=== PATIENT | female | born 1940 | race Caucasian/White ===

== ENCOUNTER 2020-04-28 13:03 | Emergency (ER) | payer MEDICARE, BC ==
[2020-04-28] MEDS ORDERED: Lidocaine 2% 20 ML MDV INFILT ONE (13:04)
--- NOTE | 2020-04-28 13:41 | EDM.PDOC ---
ED HPI GENERAL MEDICAL PROBLEM - General Chief Complaint: Laceration Stated Complaint: LT FOREHEAD LACERATION Time Seen by Provider: 04/28/20 13:38 Source of Information: Reports: Patient History Limitations: Reports: No Limitations - History of Present Illness INITIAL COMMENTS - FREE TEXT/NARRATIVE: 79-year-old female who reports she was walking into her kitchen and there is a strip between the kitchen and room adjoining it and she caught her foot on the strep and fell forward and struck her head on a chair and then landed on the floor. This occurred approximately 11:30 AM today. There was no loss of consciousness. She does have some discomfort around the injured area on her left forehead and some neck stiffness but she denies any real pain. She denies any vision problems. She does complain of pain along her right lateral back, flank and her entire right sided abdomen. She has had no nausea or vomiting but she does report a lot of belching since this occurred. She is rating the pain on her right side as about a 7/10. It is a sore pain and it is worse with movement and with palpation. She also landed on both her knees and sustained abrasions to these areas. But she reports the pain in these areas is minimal and she has been ambulatory without any problem. There are no other associated signs or symptoms. There are no other modifying factors. 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.) right side of her body and head Pain Score (Numeric/FACES): 5 - Related Data Allergies Allergy/AdvReac Type Severity Reaction Status Date / Time amoxicillin Allergy Cannot Verified 04/28/20 13:48 Remember Penicillins Allergy Cannot Verified 04/28/20 13:41 Remember terazosin Allergy Cannot Verified 04/28/20 13:48 Remember Past Medical History Cardiovascular History: Reports: CAD, Hypertension Endocrine/Metabolic History: Reports: Diabetes, Type II - Past Surgical History Cardiovascular Surgical History: Reports: Coronary Artery Bypass Social & Family History - Tobacco Use Tobacco Use Status *Q: Unknown Ever Used Tobacco (Nonsmoker) - Alcohol Use Alcohol Use History: No - Living Situation & Occupation Occupation: Retired ED ROS GENERAL - Review of Systems Review Of Systems: See Below Constitutional: Reports: No Symptoms HEENT: Reports: No Symptoms Respiratory: Reports: No Symptoms Cardiovascular: Reports: No Symptoms Endocrine: Reports: No Symptoms GI/Abdominal: Reports: Abdominal Pain, Other (Pulsing) : Reports: No Symptoms Musculoskeletal: Reports: Other (Some neck stiffness. Bilateral knee soreness but mild.) Skin: Reports: Wound (Laceration to left forehead. Bilateral knee abrasions.) Neurological: Reports: No Symptoms Hematologic/Lymphatic: Reports: No Symptoms Immunologic: Reports: Other (Greater than 5 years since her last tetanus immunization.) ED EXAM, SKIN/RASH Exam: See Below Exam Limited By: No Limitations General Appearance: Alert, WD/WN, Mild Distress Eye Exam: Bilateral Eye: EOMI, Normal Inspection, PERRL Ears: Normal External Exam, Hearing Grossly Normal Nose: Normal Inspection, Normal Mucosa, No Blood Throat/Mouth: Normal Inspection, Normal Oropharynx, Normal Voice, No Airway Compromise Head: Facial Swelling, Facial Tenderness (4 cm laceration over the origin) Neck: Normal Inspection, Tender Midline (Mild posterior midline tenderness.) Respiratory/Chest: No Respiratory Distress, Lungs Clear, Normal Breath Sounds, No Accessory Muscle Use, Chest Non-Tender Cardiovascular: Normal Peripheral Pulses, Regular Rate, Rhythm, No Murmur Peripheral Pulses: 2+: Radial (L), Radial (R), Dorsalis Pedis (L), Dorsalis Pedis (R) GI/Abdominal: Normal Bowel Sounds, Soft, No Mass, Pelvis Stable, Tender (All along the right side.) Back Exam: Normal Inspection Extremities: Normal Inspection, Normal Range of Motion, No Pedal Edema, Normal Capillary Refill, Other (Mildly tender over both anterior knees but she has full and active range of motion. There is no crepitus or bony deformity.) Neurological: Alert, Oriented, CN II-XII Intact, Normal Cognition, No Motor/Sensory Deficits Psychiatric: Normal Affect Skin: Warm, Dry, Normal Color, Wound/Incision (Abrasions on both knees. Laceration on the left forehead that is 6 cm in length. There is one 5 cm portion and then one 1 cm portion.) Location, Skin: Face (Left forehead as her evaluation), Lower Extremity, Right (Right knee abrasion), Lower Extremity, Left (Left knee abrasion) Characteristics: Other (As above) ED SKIN PROCEDURES - Laceration/Wound Repair Left Forehead Appearance: Subcutaneous Distal NVT: Neuro & Vascular Intact Anesthetic Type: Local Local Anesthesia - Lidocaine (Xylocaine): 2% Plain Local Anesthetic Volume: Other (7 mL) Skin Prep: Saline Saline Irrigation (cc's): 500 Exploration/Debridement/Repair: Wound Explored, No Foreign Material Found, Other (No crepitus. No bony deformity.) Closed with: Sutures Lac/Wound length In cm: 6 Suture Size: 5-0 # of Sutures: 10 Suture Type: Prolene, Running, Simple Sterile Dressing Applied: Nurse Tetanus Status Addressed: Yes (Patient given Tdap immunization.) Complications: No Course - Vital Signs Last Recorded V/S: Last Vital Signs Temp 36.6 C 04/28/20 13:05 Pulse 86 04/28/20 17:00 Resp 16 04/28/20 17:00 BP 113/84 04/28/20 17:00 Pulse Ox 100 04/28/20 17:00 - Orders/Labs/Meds Orders: Active Orders 24 hr Category Date Time Status Abdomen Pelvis w Cont [CT] Stat Exams 04/28/20 14:41 Taken Cervical Spine wo Cont [CT] Stat Exams 04/28/20 14:41 Taken Head wo Cont [CT] Stat Exams 04/28/20 14:41 Taken Peripheral IV Insertion Adult [OM.PC] Routine Oth 04/28/20 14:04 Ordered Labs: Laboratory Tests 04/28/20 04/28/20 04/28/20 Range/Units 14:10 14:10 14:10 WBC 9.4 (3.0-10.3) x10-3/uL RBC 3.80 (3.60-5.20) x10(6)uL Hgb 10.9 L (11.4-15.5) g/dL Hct 33.3 L (34.2-48.2) % MCV 87.6 (76.7-100.5) fL MCH 28.6 (23.9-33.9) pg MCHC 32.6 (31.9-34.8) g/dL RDW 13.7 (12.3-16.5) % Plt Count 313 (151-488) x10(3)uL MPV 7.7 (7.1-12.4) fL Neut % (Auto) 78.7 H (30.8-76.2) % Lymph % (Auto) 12.2 L (18.4-52.1) % Nuckolls % (Auto) 6.3 (4.4-15.7) % Eos % (Auto) 2.3 (0.6-8.1) % Baso % (Auto) 0.5 (0.2-1.5) % Neut # (Auto) 7.4 H (1.5-6.3) x10-3/uL Lymph # (Auto) 1.1 (1.0-4.4) x10-3/uL Nuckolls # (Auto) 0.6 (0.3-1.0) x10-3/uL Eos # (Auto) 0.2 (0.0-0.8) x10-3/uL Baso # (Auto) 0.0 (0.0-0.1) x10-3/uL Sodium 137 (135-145) mmol/L Potassium 4.5 (3.5-5.3) mmol/L Chloride 100 (100-110) mmol/L Carbon Dioxide 27 (21-32) mmol/L BUN 29 H (7-18) mg/dL Creatinine 1.2 H (0.55-1.02) mg/dL Est Cr Clr Drug Dosing TNP Estimated GFR (MDRD) 43 L (>60) BUN/Creatinine Ratio 24.2 H (9-20) Glucose 157 H (80-116) mg/dL Calcium 9.4 (8.6-10.2) mg/dL Total Bilirubin 0.5 (0.1-1.3) mg/dL AST 23 (5-25) IU/L ALT 27 (12-36) U/L Alkaline Phosphatase 105 (56-112) IU/L Total Protein 7.8 (6.0-8.0) g/dL Albumin 3.4 (3.2-4.6) g/dL Globulin 4.4 g/dL Albumin/Globulin Ratio 0.8 Lipase 63 L (73-393) U/L Meds: Medications Discontinued Medications Generic Name Dose Route Start Last Admin Trade Name Mattq PRN Reason Stop Dose Admin Diphtheria/Tetanus/Acell Pertussis 0.5 ml 04/28/20 14:04 04/28/20 14:09 Boostrix IM 04/28/20 14:05 0.5 ml .ONCE ONE Administration Sodium Chloride 500 mls @ 999 mls/hr 04/28/20 14:40 04/28/20 14:50 Normal Saline IV 04/28/20 15:10 999 mls/hr .BOLUS ONE Administration Iopamidol 100 ml 04/28/20 14:50 04/28/20 15:15 Isovue-370 (76%) IV 04/28/20 14:51 85 ml . DIRECTED ONE Administration Sodium Chloride 10 ml 04/28/20 14:04 04/28/20 14:00 Saline Flush FLUSH 10 ml ASDIRECTED PRN Administration Keep Vein Open - Radiology Interpretation Free Text/Narrative:: CT scan of head shows no evidence of acute traumatic abnormalities but there is decreased attenuation of the mena matter and white matter in the anterolateral right frontal lobe area. The radiologist was questioning a subacute stroke but I was able to get reports from studies and 2018 from [facility] and this is where she had her previous stroke. 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 CT scan of abdomen and pelvis shows no acute traumatic normality per the radiologist. - Re-Assessments/Exams Free Text/Narrative Re-Assessment/Exam: 04/28/20 14:30: The patient does have abdominal pain on the right side and this was traumatic injury. She also has some headache and some mild neck pain. I will do a CT scan of her head, cervical spine and abdomen and pelvis. I will need to give IV contrast for the abdomen and pelvis and her blood tests are all reassuring. She is on metformin and she will need to hold the metformin for 48 hours after the IV contrast. She has remained neurologically stable and vitally stable. 04/28/20 16:20: The patient's laceration has been sutured and she tolerated this well. The CT scans of come back and are negative for any acute pathology. She does have the decreased attenuation in the right frontal lobe which could be her previous stroke but we are attempting to get records from [facility] to verify this. 04/28/20 16:45: Records from [place] in [place] and does verify that she had a previous stroke and her right frontoparietal area that matches up with this area on the CT scan today. She has been able to ambulate without any problems. She is vitally neurologically stable and ready for discharge at this point. Precautions and reasons for return to the emergency department were discussed with the patient will she was in the emergency department are detailed in the patient's discharge instructions. Departure - Departure Time of Disposition: 17:05 Disposition: Home, Self-Care 01 Condition: Good (Improved) Clinical Impression: Fall from other slipping, tripping, or stumbling Head contusion Qualifiers: Encounter type: initial encounter Contusion of head detail: periocular area Laterality: left Qualified Code(s): S00.12XA - Contusion of left eyelid and periocular area, initial encounter Mild concussion Qualifiers: Encounter type: initial encounter Loss of consciousness presence/duration: without LOC Qualified Code(s): S06.0X0A - Concussion without loss of consciousne ss, initial encounter Abdominal wall contusion Qualifiers: Encounter type: initial encounter Qualified Code(s): S30.1XXA - Contusion of abdominal wall, initial encounter Forehead laceration Qualifiers: Encounter type: initial encounter Qualified Code(s): S01.81XA - Laceration without foreign body of other part of head, initial encounter - Discharge Information Instructions: Fall Prevention in the Home, Adult, [id number], Concussion, Adult, [id number], Contusion, [id number], Head Injury, Adult, [id number], Sutured Wound Care, [id number] Referrals: Yayo Beyer MD [Primary Care Provider] - Forms: ED Department Discharge Additional Instructions: The CT scans of your head, neck, abdomen and pelvis showed no acute traumatic abnormality. You do have evidence of your previous stroke on the CT scan of your head. Your blood tests were all reassuringly normal. Tonight, you should wash your hair and get all of the blood out. You can get the wound wet tonight but do not get the wound wet for 3 more days after tonight. After 3 days, you may get the wound wet but do not immerse it in water until the sutures are out. Suture removal in 7 days. You can take Tylenol 1000 mg by mouth every 6 hours as needed for pain. You should use the Vic wrap around the wound on your head tonight keep pressure on it and try to limit the amount of swelling and hematoma formation. Back to the emergency department for unrelenting vomiting, worse headache, vision problems, localized area of weakness or numbness, redness in the area or any other concerning sign or symptom. Sepsis Event Note (ED) - Focused Exam Vital Signs: Vital Signs Temp Pulse Resp BP Pulse Ox 04/28/20 17:00 86 16 113/84 100 04/28/20 15:00 83 17 128/83 100 04/28/20 13:05 36.6 C 62 16 134/107 H 99 - My Orders Last 24 Hours: My Active Orders 04/28/20 14:04 Peripheral IV Insertion Adult [OM.PC] Routine 04/28/20 14:41 Abdomen Pelvis w Cont [CT] Stat Cervical Spine wo Cont [CT] Stat Head wo Cont [CT] Stat - Assessment/Plan Last 24 Hours: My Active Orders 04/28/20 14:04 Peripheral IV Insertion Adult [OM.PC] Routine 04/28/20 14:41 Abdomen Pelvis w Cont [CT] Stat Cervical Spine wo Cont [CT] Stat Head wo Cont [CT] Stat
[2020-04-28] MEDS: Sodium Chloride 0.9% 10 ML Syringe FLUSH PRN (14:00)
[2020-04-28] MEDS: Diphtheria,Pertussis(Acell),Tetanus Vaccine 0.5 ML Syringe IM ONE (14:09)
[2020-04-28] MEDS: Sodium Chloride 0.9% 500 ML IV ONE (14:50)
[2020-04-28] MEDS: Iopamidol 755 Mg/ML 100 ML Bottle IV ONE (15:15)
== END 2020-04-28 17:12 | disposition home or self-care (01) ==
LOC: FB.ED 13:03
DX: S06.0X0A Concussion without loss of consciousness, initial encounter (principal); S01.81XA Laceration without foreign body of other part of head, initial encounter; S30.1XXA Contusion of abdominal wall, initial encounter; S80.212A Abrasion, left knee, initial encounter; S80.211A Abrasion, right knee, initial encounter; I10 Essential (primary) hypertension; I25.10 Atherosclerotic heart disease of native coronary artery without angina pectoris; E11.9 Type 2 diabetes mellitus without complications; Z88.1 Allergy status to other antibiotic agents; Z88.0 Allergy status to penicillin; Z88.8 Allergy status to other drugs, medicaments and biological substances; Z95.1 Presence of aortocoronary bypass graft; Z23 Encounter for immunization; W01.0XXA Fall on same level from slipping, tripping and stumbling without subsequent striking against object, initial encounter; Y92.000 Kitchen of unspecified non-institutional (private) residence as the place of occurrence of the external cause
CPT/HCPCS: 12014; 36415; 70450; 72125; 74177; 80053; 83690; 85025; 90471; 90715; 99284; J2001; J7040; Q9967